=== PATIENT | female | born 1985 | race Caucasian/White ===

== ENCOUNTER → 2020-07-30 00:41 | Outpatient (CLI) | payer OTHER, SELFPAY ==
[2020-07-30 21:02] LABS: SARS-CoV-2 RNA PCR Negative
== END ==
PROVIDERS: PCP Chiropractor; Visit Provider Obstetrics & Gynecology Gynecology
DX: Z01.812 Encounter for preprocedural laboratory examination (principal); Z20.822 Contact with and (suspected) exposure to COVID-19
CPT/HCPCS: C9803; U0003; U0005

== ENCOUNTER 2020-08-02 08:50 | Inpatient (IN) | payer OTHER, SELFPAY ==
[2020-07-21 15:26] VITALS: BMI 24.3
[2020-08-02] VITALS (15 sets, daily range): BP systolic 103–120; BP diastolic 62–85; PULSE 69–97; RESP 10–20; TEMP 36.6–37.1; O2SAT 95–100
[2020-08-02] MEDS: ACETAMINOPHEN 500 MG TABLET 1000 MG PO (06:30)
[2020-08-02] MEDS: LACTATED RINGERS 1,000 ML 30 ML IV CONT ×2 (06:30→09:01)
[2020-08-02] MEDS: KETOROLAC 15 MG/ML VIAL (*BKC) IV PUSH (06:31)
--- NOTE | 2020-08-02 06:51 | WPDANESEPPF ---
Anes - Initial Pre Proc Eval Procedure: Operation Date: 08/02/20 07:30 Proposed Procedures p Total Abdominal Hysterectomy With Bilateral Salpingectomy - Annie Nelson MD Date/Time: 08/02/20 06:51 Surgeon: Annie Nelson MD Pre Op Diagnosis: fibroids uterus Patient Data Age: 34 Gender: F Height: 1.75 m Weight: 74.8 kg Allergies Allergy/AdvReac Type Severity Reaction Status Date / Time No Known Allergies Allergy Verified 08/02/20 07:00 Home Medications Medication Instructions Recorded Confirmed Type alprazolam [Xanax] 1 mg PO TID PRN 07/21/20 07/21/20 History aripiprazole [Abilify] 15 mg PO DAILY 07/21/20 07/21/20 History citalopram [Celexa] 40 mg PO DAILY 07/21/20 07/21/20 History dextroamphetamine-amphetamine 5 mg PO DAILY 07/21/20 07/21/20 History [Adderall] ibuprofen 800 mg PO TID PRN 07/21/20 07/21/20 History multivitamin 1 tablet PO DAILY 07/21/20 07/21/20 History propranolol 10 mg PO BID 07/21/20 07/21/20 History Patient hx anesthesia problems: none Family hx anesthesia problems: none PMFSH Past Medical History Medical History (Updated 08/02/20 @ 07:04 by Dani Horner DO) Anxiety Bipolar disorder Depression Migraine Tachycardia patient describes frequent tachycardia as high as 160 in the past. On propranolol now. She states she was never told it was an SVT Surgical History Surgical History (Updated 08/02/20 @ 06:53 by Dani Horner DO) History of x1 Social History Social History Years smoked: 7 Smoking status: Former smoker Smoking end date: 04/09/15 Alcohol intake: former Alcohol use details: SOBER 4 MONTHS Substance use: never Substance use type: does not use Living arrangements: with family Spiritual care concerns: No Anes - Eval Final PreProcedure Day of Procedure 08/02/20 06:51 Patient weight: normal Heart: regular rate and rhythm Lungs: clear to auscultation and normal air movement Airway: Mallampati scale class II Neurological: alert and oriented Last oral intake: >/= 8 hours ASA classification: III Emergent: no Anesthetic plan: proceed Anesthesia type and monitoring: general ETT and standard monitoring Informed Consent: The patient's anesthetic plan and its attendant risks and benefits were discussed with the patient/family/POA. Questions were solicited and answers provided to the satisfaction of the patient/family/POA.
--- NOTE | 2020-08-02 07:20 | PM.IMHP ---
H&P: HPI History of Present Illness Date/Time: 08/02/20 07:20 The patient is a 34-year-old 3 para 2 portal 1 being admitted for total abdominal hysterectomy bilateral salpingectomy secondary to enlarged uterus with fibroids. Patient has had increasing pelvic pain and pressure with feelings of a full bladder at all times. She has had increased cramping with her cycles although the flow remains normal. The pelvic ultrasound shows a 10cm uterus with a 5cm fundal fibroid as well. There are multiple small fibroids measuring approximately 2cm each. The risks of surgery including infection, bleeding, injury to internal organs (including bowel, bladder, ureters, and ovaries), deep vein thrombosis, and general anesthesia are reviewed with the patient. Questions were answered and the patient agrees to proceed. Route of delivery was reviewed and due to the large size of the fibroids the plan is to proceed with an abdominal approach. Chief Complaint: fibroid uterus Review of Systems Review of Systems: All systems reviewed & are unremarkable except as noted in HPI and below PMFSH Past Medical History Medical History (Updated 08/02/20 @ 07:25 by Annie Nelson MD) Anxiety Bipolar disorder Depression Migraine (normal spontaneous vaginal delivery) Tachycardia patient describes frequent tachycardia as high as 160 in the past. On propranolol now. She states she was never told it was an SVT Surgical History Surgical History (Updated 08/02/20 @ 07:24 by Annie Nelson MD) H/O foot surgery History of x1 Social History Social History Years smoked: 7 Smoking status: Former smoker Smoking end date: 04/09/15 Alcohol intake: former Alcohol use details: SOBER 4 MONTHS Substance use: never Substance use type: does not use Living arrangements: with family Spiritual care concerns: No Meds Home Medications and Allergies Home Medications Medication Instructions Recorded Confirmed Type alprazolam [Xanax] 1 mg PO TID PRN 07/21/20 08/02/20 History aripiprazole [Abilify] 15 mg PO DAILY 07/21/20 08/02/20 History citalopram [Celexa] 40 mg PO DAILY 07/21/20 08/02/20 History dextroamphetamine-amphetamine 5 mg PO DAILY 07/21/20 08/02/20 History [Adderall] ibuprofen 800 mg PO TID PRN 07/21/20 08/02/20 History multivitamin 1 tablet PO DAILY 07/21/20 08/02/20 History propranolol 10 mg PO BID 07/21/20 08/02/20 History Allergies Allergy/AdvReac Type Severity Reaction Status Date / Time No Known Allergies Allergy Verified 08/02/20 07:00 Vital Signs Vital Signs - 24 hr 08/02/20 06:30 Temperature 97.8 F Pulse Rate 88 Respiratory Rate 18 Blood Pressure 107/67 Pulse Oximetry 100 Exam Const: General: healthy appearing and alert Orientation/consciousness: patient oriented x3 Resp: Effort & Inspection: normal respiratory effort Auscultation: clear to auscultation bilaterally Cardio: Rate: regular rate Rhythm: regular rhythm GI: GI Palp: Yes Soft to palpation, No Tenderness to palpation present (GI) and No Palpable mass present : External Female Exam: normal external appearance Speculum Exam - Vagina: normal appearance of the vagina and normal vaginal discharge Speculum Exam - Cervix: normal appearance of the cervix Bimanual exam- vagina & uterus: consistency normal and enlarged Bimanual Exam- Adnexa, other: normal adnexae and No adnexal tenderness Neuro: General: patient oriented x3 Assessment and Plan Assessment and plan (1) Fibroids: Code(s): D21.9 - Benign neoplasm of connective and other soft tissue, unspecified Status: Acute Assessment and Plan: symptomatic fibroid uterus plan to proceed with TAI-BS
--- NOTE | 2020-08-02 07:26 | WPDHPUPDATE1 ---
History and Physical Update Update Date/Time: 08/02/20 07:26 History and Physical has been reviewed, including an updated exam of the patient. There are NO changes in the patient's condition. Risks, benefits, and alternatives have been discussed and questions answered. Patient agrees to proceed with procedure.
[2020-08-02] MEDS: ceFAZolin 2 GM/D5W 50 ML 2 GM/50 ML BAG IVPB (07:30)
--- NOTE | 2020-08-02 08:46 | PM.PROC ---
Procedure Note - Detailed Date of procedure: 08/02/20 Pre-op diagnosis: fibroids uterus Post-op diagnosis: same Procedure performed: Total abdominal hysterectomy and bilateral salpingectomy Description of procedure: The patient was taken to the operating room and placed in the dorsal supine position under general anesthesia. She was prepped and draped in the usual sterile fashion. Abdomen is palpated and the fundus is noted at approximately U -4. Pfannenstiel skin incision was made with a scalpel and carried down to the underlying layer of fascia. Fascia was nicked in the midline and extended laterally using Tam scissors. [facility] was used to tent the fascia which was then dissected off with sharp dissection due to adhesions. The rectus muscles are in the midline and the peritoneum tented. The peritoneum was entered during this process. The incision is extended with blunt traction. The bowel was packed away using moist laparotomy sponges and the retractor was placed. The flexible center blade is utilized. The tube is grasped on the cornea with large Peon and and delivered up into the incision. The round ligaments are doubly ligated transected and the anterior leaf of the broad ligament incised meeting in the midline. The tubes are grasped with a Anup on the left side the utero-ovarian ligament is isolated by creating a window in the posterior leaf of the broad ligament. The pedicle is clamped incorporating the tube in the portion being excised. The pedicle was transected and suture ligated with 0 Vicryl. Additional [id number] sutures required for hemostasis on the left ovary. The identical procedure is performed on the other side. The uterine vessels are skeletonized, clamped, transected, and suture ligated with 0 Vicryl. The cardinal and uterosacral ligaments are serially clamped, transected, and suture ligated with 0 Vicryl. The uterosacral ligaments are tagged for future use. On entering the left portion of the right uterosacral the vaginal cuff is entered. The specimen is amputated using Joce scissors. The vaginal cuff is grasped with Allis clamps. The vaginal cuff was closed using 0 Vicryl in a running locked fashion incorporating each angle to the ipsilateral uterosacral ligaments. The pelvis is irrigated and pedicles are inspected and noted to be hemostatic. The bladder flap has several raw areas that required Bovie cautery for hemostasis. The tags are cut out. The lap sponges and retractor are removed. The fascia is closed using 0 Vicryl in a running fashion. Subcutaneous tissues are irrigated and made hemostatic using Bovie cautery. Skin is closed using 4 0 Vicryl in a subcuticular fashion and Dermaflex is placed over the incision. Patient is awakened from anesthesia and taken to recovery in stable condition. Sponge, needle, and instrument counts are correct per the OR staff. Anesthesia: GETA Surgeon: Annie Nelson MD Estimated blood loss (mL): 120 Drains: Yes (naik) Packing: No Pathology: yes (uterus and tubes) Complications: No immediate complications Condition: stable Disposition: PACU Findings: Uterus is enlarged, tubes and ovaries appeared normal, bladder flap was densely adherent especially in the midline to the lower uterine segment
--- NOTE | 2020-08-02 08:54 | PM.DS ---
DS: Admitting Diagnosis Admitting Diagnosis Admitting Diagnosis: fibroid uterus DS: Discharge Diagnosis Discharge Diagnosis (1) Fibroids: Code(s): D21.9 - Benign neoplasm of connective and other soft tissue, unspecified Status: Acute (2) S/P TAI (total abdominal hysterectomy): Code(s): Z90.710 - Acquired absence of both cervix and uterus Status: Acute DS: Summary Hospital Course Hospital Course: The patient is tolerating a regular diet, voiding, and ambulating prior to discharge. Status at Discharge Functional status at discharge: independent ambulation Overall status at discharge: patient is progressing back to baseline Time Spent with Patient Time attestation: Total time spent providing and/or coordinating discharge services: DS: Data Data Completed and Pending Pending studies at discharge: Pending at discharge 08/02/20 08:39 Surgical [PTH] Routine Labs on day of discharge: Labs from last 24 hours 08/02/20 05:48 Blood Type O Positive Antibody Screen Negative Discharge Plan Discharge Attending physician on discharge: Annie Nelson Discharging Clinician: Annie Nelson Anticipated Discharge Date/Time: 08/04/20 07:43 Patient Disposition: Home, Self-Care Activity: may shower, may drive after 2 weeks and pelvic rest Diet: regular Wound Care Instructions: incision open to air Stand Alone Forms: General Discharge Instructions Follow-up/Referrals: Annie Nelson MD [Physician] - 1 Week Discharge Medications: New hydrocodone-acetaminophen 5-325 mg Tablet 1 tablet PO Q3H PRN (Reason: Pain Rated 5 Or Less) Qty: 30 RF: 0 Continued multivitamin Tablet 1 tablet PO DAILY RF: 0 citalopram [Celexa] 40 mg Tablet 40 mg PO DAILY RF: 0 ibuprofen 800 mg Tablet 800 mg PO TID PRN (Reason: Pain) RF: 0 alprazolam [Xanax] 1 mg Tablet 1 mg PO TID PRN (Reason: Anxiety) RF: 0 propranolol 10 mg Tablet 10 mg PO BID RF: 0 dextroamphetamine-amphetamine [Adderall] 5 mg Tablet 5 mg PO DAILY RF: 0 aripiprazole [Abilify] 15 mg Tablet 15 mg PO DAILY RF: 0 Date of admission: 08/02/20 10:33 Primary Care Provider: Mio,Chucho T. Admitting Provider: Annie Nelson Attending physician on admission: Annie Nelson Condition: Stable
[2020-08-02] MEDS: fentaNYL CITRATE INJ (*CRX) 100 MCG/2 ML VIAL 25 MCG IV PUSH ×7 (09:09→10:05)
[2020-08-02] MEDS: HYDROmorphone HCL INJ (*CRX) 1 MG/ML SYR 0.5 MG IV PUSH ×2 (10:11→10:24)
--- NOTE | 2020-08-02 10:38 | PC.NURSE ---
This patient, Courtney Sanchez, was received from PACU per bed to room 289. Patient/family oriented to unit policies and routines
[2020-08-02] MEDS: FENTANYL 600MCG/NS30MLPCA(*CRX 600 MCG/30 ML PCA.VIAL IV CONT (11:30)
[2020-08-02] MEDS: DEXTROSE 5%/LACTATED RINGERS 1,000 ML 125 ML IV CONT ×2 (11:37→19:32)
--- NOTE | 2020-08-02 16:20 | PC.NURSE ---
Zofran pulled from pyxis and 4mg were given at 1620. Zofran was listed as a profile med in the pyxis but was discontinued on the JUN. Zofran not able to be scanned due to this glitch.
[2020-08-02] MEDS: ALPRAZolam (*CRX) 0.5 MG TABLET 1 MG PO (18:43)
[2020-08-02] MEDS: KETOROLAC 30 MG/ML VIAL (*BKC) IV PUSH (22:06)
[2020-08-02] MEDS: PROPRANOLOL HCL 10 MG TABLET PO (22:07)
[2020-08-02] MEDS: HYDROcodone/acetaminophen (*CRX) 5-325 MG TABLET 1 TAB PO (22:08)
--- NOTE | 2020-08-02 23:10 | PC.NURSE ---
discontinued MEDICINE ASSISTANT pump at 2150. total infused:142 mcg. wasted 20cc with witness RN. patient's vitals WNL
[2020-08-03] MEDS: HYDROcodone/acetaminophen (*CRX) 5-325 MG TABLET 1 TAB PO ×8 (01:37→23:38)
[2020-08-03] MEDS: SIMETHICONE 80 MG TAB.CHEW PO ×8 (01:37→23:39)
[2020-08-03 04:13] VITALS: BP 106/64; PULSE 94; RESP 18; TEMP 36.9; O2SAT 100
[2020-08-03] MEDS: KETOROLAC 30 MG/ML VIAL (*BKC) IV PUSH (04:16)
[2020-08-03 05:31] LABS: Basophils Percent Auto 0.2 % (0.2-1.2); Eosinophils Percent Auto 0.1 % (0-4.4); Hematocrit 33.7 % (37.0-47.0); Hemoglobin 11.6 g/dL (12.0-15.0); Immature Granulocyte Absolute 0.06 K/mm3 (0.00-0.031); Immature Granulocyte Percent A 0.4 % (0-0.5); Lymphocytes Absolute Auto 1.65 K/mm3 (0.9-3.2); Lymphocytes Percent Auto 11.3 % (18.3-44.2); Mean Corpuscular HGB Conc 34.4 g/dl (32-36); Mean Corpuscular Hemoglobin 30.9 pg (26-34); Mean Corpuscular Volume 89.6 fl (80-100); Mean Platelet Volume 9.9 fl (7.4-10.4); Monocytes Absolute Auto 0.8 K/mm3 (0.1-0.6); Monocytes Percent Auto 5.6 % (2.6-8.5); Neutrophils Absolute Auto 12.1 K/mm3 (1.3-6.7); Neutrophils Percent Auto 82.4 % (45.5-73.1); Platelet Count Result 275 k/mm3 (150-375); Red Blood Count 3.76 M/mm3 (4.2-5.4); Red Cell Distribution Width 12.3 % (11.5-14.5); White Blood Count 14.6 K/mm3 (4.5-10.0)
[2020-08-03 07:15] VITALS: BP 97/58; PULSE 97; RESP 16; TEMP 36.6
--- NOTE | 2020-08-03 07:41 | PM.GYNPNOP ---
FISH STRAIGHTENER - A/P Postoperative Procedures: Procedures Operation Date: 08/02/20 07:30 Actual Procedures Side Surgeon p Total Abdominal Hysterectomy With Bilateral Salpingectomy Bilateral Annie Nelson MD Postoperative day: 1 Postoperative status: doing well Postoperative plan: routine post-op care and discharge (patient asking about possible dc today; will see how today goes) Time Spent With Patient Time: Total time spent is greater than 50% in coordination of care (as documented) at patient's floor/unit and/or counseling patient: Time with patient: less than 15 minutes FISH STRAIGHTENER- PN:Subj Post-Op Subjective Date/time seen: 08/03/20 07:41 Subjective: patient reports feeling better and pain is well controlled Exam Narrative: Exam Narrative: inc c/d/i abdomen soft, nt FISH STRAIGHTENER - PN: Obj Data Vital Signs Vital Signs: Vital Signs - 24 hr 08/02/20 09:01 08/02/20 09:15 08/02/20 09:30 Temperature 98.4 F Pulse Rate 71 69 89 Respiratory Rate 17 14 14 Blood Pressure 116/85 110/80 106/68 Pulse Oximetry 100 100 98 08/02/20 09:45 08/02/20 10:00 08/02/20 10:15 Temperature Pulse Rate 83 87 86 Respiratory Rate 10 L 12 12 Blood Pressure 107/71 108/71 105/74 Pulse Oximetry 95 98 97 08/02/20 10:30 08/02/20 10:47 08/02/20 12:17 Temperature 98.7 F 98.3 F Pulse Rate 87 97 90 Respiratory Rate 12 14 14 Blood Pressure 110/74 118/71 103/62 Pulse Oximetry 95 97 95 08/02/20 16:20 08/02/20 19:36 08/02/20 21:50 Temperature 98.4 F 98.4 F Pulse Rate 91 76 Respiratory Rate 20 18 18 Blood Pressure 119/80 120/82 Pulse Oximetry 100 100 08/02/20 22:07 08/02/20 22:41 08/03/20 04:13 Temperature 97.8 F 98.4 F Pulse Rate 90 78 94 Respiratory Rate 18 18 Blood Pressure 111/78 106/64 Pulse Oximetry 100 100 Intake/Output Intake/Output: Intake & Output 07/31/20 08/01/20 08/02/20 08/03/20 23:59 23:59 23:59 23:59 Intake Total 4251.4 1700 Output Total 3930 2950 Balance 321.4 -1250 Meds/Results Medications: Active Medications Generic Name Dose Route Start Last Admin Trade Name Freq PRN Reason Stop Dose Admin Hydrocodone Bitart/Acetaminophen 1 tab 08/02/20 10:33 08/03/20 07:14 Hydrocodone/Acetaminophen (*Crx) 5-325 Mg Tablet PO 1 tab Q3H PRN Administration Pain Rated 5 or Less Alprazolam 1 mg 08/02/20 10:33 08/02/20 18:43 Alprazolam (*Crx) 0.5 Mg Tablet PO 1 mg TID PRN Administration Anxiety Aripiprazole 15 mg 08/02/20 11:00 08/02/20 14:51 Aripiprazole 5 Mg Tablet PO Not Given DAILY ARJUN Dextrose/Lactated Ringer's 1,000 mls @ 125 mls/hr 08/02/20 10:33 08/02/20 19:32 Dextrose 5%/Lactated Ringers IV CONT 125 mls/hr .Q8H ARJUN Administration Fentanyl Citrate 600 mcg in 30 mls @ 0.5 mls/hr 08/02/20 10:45 08/02/20 21:50 Fentanyl 600 Mcg/Ns 30 Ml Jammer Operator IV CONT 10 mcg/hr .Q24H PRN 0.5 mls/hr NARROW FABRIC CALENDERER Management Titration Protocol 10 MCG/HR Ibuprofen 600 mg 08/02/20 10:33 Ibuprofen 600 Mg Tablet PO Q6H PRN Cramping Ketorolac Tromethamine 30 mg 08/02/20 10:33 08/03/20 04:16 Ketorolac 30 Mg/Ml Vial (*Bkc) IV PUSH 08/07/20 10:34 30 mg Q6H PRN Administration Pain Rated 4-6 Metoclopramide HCl 10 mg 08/02/20 10:33 Metoclopramide Hcl Inj 10 Mg/2 Ml Vial IV PUSH Q6HR PRN nausea Multivitamins Therapeutic 1 tablet 08/02/20 10:33 08/02/20 12:10 Multivitamins Therapeutic Tab (*Bkc) PO Not Given DAILY ARJUN Naloxone HCl 0.1 mg 08/02/20 10:33 Naloxone Hcl 0.4 Mg/Ml Vial IV PUSH Q2M PRN Respiratory rate less than 10 Propranolol HCl 10 mg 08/02/20 21:00 08/02/20 22:07 Propranolol Hcl 10 Mg Tablet PO 10 mg Q12HR ARJUN Administration Simethicone 80 mg 08/02/20 10:33 08/03/20 07:14 Simethicone 80 Mg Tab.Chew PO 80 mg Q2H PRN Administration Gas Labs CBC & Chem 7: 08/03/20 04:05 Labs: Laboratory Results - last 24 hr 08/02/20
--- NOTE | 2020-08-03 08:47 | P.PNAN_ITS ---
Anes - Prog Note Post-Op Date/Time: 08/03/20 08:47 Cardiovascular status: normal Respiratory status: normal Airway patency: baseline Mental status: baseline Post-Op hydration status: normal Vital Signs: Last Vital Signs Temp 36.9 C 08/03/20 04:13 Pulse 94 08/03/20 04:13 Resp 18 08/03/20 04:13 BP 106/64 08/03/20 04:13 Pulse Ox 100 08/03/20 04:13 Pain Score (VAS): 3 I/O: Intake & Output 08/02/20 08/03/20 08/03/20 23:59 07:59 15:59 Intake Total 3901.4 1700 Output Total 3800 2950 Balance 101.4 -1250 Laboratory Tests 08/03/20 04:05 08/03/20 04:05 WBC 14.6 H RBC 3.76 L Hgb 11.6 L Hct 33.7 L MCV 89.6 MCH 30.9 MCHC 34.4 RDW 12.3 Plt Count 275 MPV 9.9 Immature Gran % (Auto) 0.4 Neut % (Auto) 82.4 H Lymph % (Auto) 11.3 L [place] % (Auto) 5.6 Eos % (Auto) 0.1 Baso % (Auto) 0.2 Lymph # (Auto) 1.65 [place] # (Auto) 0.8 H Eos # (Auto) 0.0 Baso # (Auto) 0.0 Abs Immat Gran (auto) 0.06 H Absolute Neuts (auto) 12.1 H Absolute Nucleated RBC 0.0 Nucleated RBC % 0.0 Post-procedural complaints: nausea (mild, treatment effective) Patient Feedback: Patient satisfied with anesthetic care.
[2020-08-03 09:17] VITALS: PULSE 92
[2020-08-03] MEDS: ARIPiprazole 5 MG TABLET 15 MG PO (09:17)
[2020-08-03] MEDS: MULTIVITAMINS THERAPEUTIC TAB (*BKC) 1 TABLET PO (09:17)
[2020-08-03] MEDS: PROPRANOLOL HCL 10 MG TABLET PO ×2 (09:17→20:51)
[2020-08-03] MEDS: IBUPROFEN 600 MG TABLET PO ×3 (09:55→23:39)
[2020-08-03 16:00] VITALS: BP 110/64; PULSE 76; RESP 20; TEMP 36.7
[2020-08-03] MEDS: ALPRAZolam (*CRX) 0.5 MG TABLET 1 MG PO (17:30)
[2020-08-03 20:40] VITALS: BP 98/54; PULSE 101; RESP 20; TEMP 36.4; O2SAT 100
[2020-08-03 20:51] VITALS: PULSE 101
[2020-08-04] MEDS: HYDROcodone/acetaminophen (*CRX) 5-325 MG TABLET 1 TAB PO ×3 (02:40→09:01)
[2020-08-04] MEDS: SIMETHICONE 80 MG TAB.CHEW PO (06:05)
[2020-08-04] MEDS: IBUPROFEN 600 MG TABLET PO (06:06)
--- NOTE | 2020-08-04 07:29 | PM.GYNPNOP ---
TELECOMMUNICATIONS ADMINISTRATOR - A/P Postoperative Procedures: Procedures Operation Date: 08/02/20 07:30 Actual Procedure Side Surgeon p Total Abdominal Hysterectomy With Bilateral Salpingectomy Bilateral Annie Nelson MD Postoperative day: 2 Postoperative status: doing well Postoperative plan: discharge Time Spent With Patient Time: Total time spent is greater than 50% in coordination of care (as documented) at patient's floor/unit and/or counseling patient: Time with patient: less than 15 minutes TELECOMMUNICATIONS ADMINISTRATOR- PN:Subj Post-Op Subjective Date/time seen: 08/04/20 07:29 Subjective: patient has no complaints, pain is well controlled and patient is tolerating oral intake Exam Narrative: Exam Narrative: inc c/d/i TELECOMMUNICATIONS ADMINISTRATOR - PN: Obj Data Vital Signs Vital Signs: Vital Signs - 24 hr 08/03/20 09:17 08/03/20 16:00 08/03/20 20:40 Temperature 98.1 F 97.6 F Pulse Rate 92 76 101 H Respiratory Rate 20 20 Blood Pressure 110/64 98/54 L Pulse Oximetry 100 08/03/20 20:51 Temperature Pulse Rate 101 H Respiratory Rate Blood Pressure Pulse Oximetry Intake/Output Intake/Output: Intake & Output 08/01/20 08/02/20 08/03/20 08/04/20 23:59 23:59 23:59 23:59 Intake Total 4251.4 1700 Output Total 3930 3450 Balance 321.4 -1750 Meds/Results Medications: Active Medications Generic Name Dose Route Start Last Admin Trade Name Freq PRN Reason Stop Dose Admin Hydrocodone Bitart/Acetaminophen 1 tab 08/02/20 10:33 08/04/20 06:05 Hydrocodone/Acetaminophen (*Crx) 5-325 Mg Tablet PO 1 tab Q3H PRN Administration Pain Rated 5 or Less Alprazolam 1 mg 08/02/20 10:33 08/03/20 17:30 Alprazolam (*Crx) 0.5 Mg Tablet PO 1 mg TID PRN Administration Anxiety Aripiprazole 15 mg 08/02/20 11:00 08/03/20 09:17 Aripiprazole 5 Mg Tablet PO 15 mg DAILY ARJUN Administration Fentanyl Citrate 600 mcg in 30 mls @ 0.5 mls/hr 08/02/20 10:45 08/02/20 21:50 Fentanyl 600 Mcg/Ns 30 Ml Compensation Vice President IV CONT 10 mcg/hr .Q24H PRN 0.5 mls/hr COLLECTIONS REPRESENTATIVE Management Titration Protocol 10 MCG/HR Ibuprofen 600 mg 08/02/20 10:33 08/04/20 06:06 Ibuprofen 600 Mg Tablet PO 600 mg Q6H PRN Administration Cramping Ketorolac Tromethamine 30 mg 08/02/20 10:33 08/03/20 04:16 Ketorolac 30 Mg/Ml Vial (*Bkc) IV PUSH 08/07/20 10:34 30 mg Q6H PRN Administration Pain Rated 4-6 Metoclopramide HCl 10 mg 08/02/20 10:33 Metoclopramide Hcl Inj 10 Mg/2 Ml Vial IV PUSH Q6HR PRN nausea Multivitamins Therapeutic 1 tablet 08/02/20 10:33 08/03/20 09:17 Multivitamins Therapeutic Tab (*Bkc) PO 1 tablet DAILY ARJUN Administration Naloxone HCl 0.1 mg 08/02/20 10:33 Naloxone Hcl 0.4 Mg/Ml Vial IV PUSH Q2M PRN Respiratory rate less than 10 Propranolol HCl 10 mg 08/02/20 21:00 08/03/20 20:51 Propranolol Hcl 10 Mg Tablet PO 10 mg Q12HR ARJUN Administration Simethicone 80 mg 08/02/20 10:33 08/04/20 06:05 Simethicone 80 Mg Tab.Chew PO 80 mg Q2H PRN Administration Gas Labs CBC & Chem 7: 08/03/20 04:05
[2020-08-04] MEDS: MULTIVITAMINS THERAPEUTIC TAB (*BKC) 1 TABLET PO (08:15)
[2020-08-04 08:16] VITALS: PULSE 101
[2020-08-04] MEDS: ARIPiprazole 5 MG TABLET 15 MG PO (08:16)
[2020-08-04] MEDS: PROPRANOLOL HCL 10 MG TABLET PO (08:16)
[2020-08-04 08:20] VITALS: BP 114/68; PULSE 101; RESP 15; TEMP 36.7; O2SAT 99
--- NOTE | 2020-08-04 08:49 | PM.OBPNVD ---
OB - PN: Subj Subjective Date/time seen: 08/04/20 08:49 doing well no complaints OB - PN: Obj Data Labs CBC & Chem 7: 08/03/20 04:05 OB - PN A/P Assessment and Plan (1) S/P TAI (total abdominal hysterectomy): Code(s): Z90.710 - Acquired absence of both cervix and uterus Status: Acute Assessment and Plan: continue with pp care. Time Spent With Patient Time: Total time spent is greater than 50% in coordination of care (as documented) at patient's floor/unit and/or counseling patient: Exam Narrative: Exam Narrative: incision c/d/i
--- NOTE | 2020-10-08 10:51 | PM.IMHP ---
H&P: HPI History of Present Illness Date/Time: 10/08/20 10:51 Patient presents for surgery on 10/25/2020 for robotic vesicle vaginal fistula repair. Chief Complaint: Vesicovaginal fistula Review of Systems Review of Systems: All systems reviewed & are unremarkable except as noted in HPI and below PMFSH Past Medical History Medical History (Updated 10/08/20 @ 10:53 by Tony Flores MD) Anxiety Bipolar disorder Depression Migraine (normal spontaneous vaginal delivery) Tachycardia patient describes frequent tachycardia as high as 160 in the past. On propranolol now. She states she was never told it was an SVT Surgical History Surgical History (Updated 08/02/20 @ 08:55 by Annie Nelson MD) H/O foot surgery History of x1 Social History Social History Years smoked: 7 Smoking status: Former smoker Alcohol intake: former Substance use: never Substance use type: does not use Spiritual care concerns: No Meds Home Medications and Allergies Home Medications Medication Instructions Recorded Confirmed Type alprazolam [Xanax] 1 mg PO TID PRN 07/21/20 08/02/20 History aripiprazole [Abilify] 15 mg PO DAILY 07/21/20 08/02/20 History citalopram [Celexa] 40 mg PO DAILY 07/21/20 08/02/20 History dextroamphetamine-amphetamine 5 mg PO DAILY 07/21/20 08/02/20 History [Adderall] ibuprofen 800 mg PO TID PRN 07/21/20 08/02/20 History multivitamin 1 tablet PO DAILY 07/21/20 08/02/20 History propranolol 10 mg PO BID 07/21/20 08/02/20 History hydrocodone-acetaminophen 1 tablet PO Q3H PRN #30 tablet 08/03/20 Rx Allergies Allergy/AdvReac Type Severity Reaction Status Date / Time No Known Allergies Allergy Verified 08/02/20 07:00 Exam Const: General: cooperative and healthy appearing HENMT: Head: normal to inspection General nose exam: Normal external nose present Face and sinus: normal facial exam Eyes: General: appearance normal, both eyes and all related structures Neck: Neck: normal visual inspection Resp: Effort & Inspection: normal respiratory effort, able to speak in complete sentences and no cough GI: Inspection: normal to inspection Back/Spine/Pelvis: Back: no CVA tenderness Skin: General skin exam: normal color and no rashes or lesions noted Neuro: General: patient oriented x3 Extrem: General: normal to inspection and full ROM Assessment and Plan Assessment and plan (1) Vesicovaginal fistula: Code(s): N82.0 - Vesicovaginal fistula Status: Acute Assessment and Plan: plan for robotic repair. She understands the risks of bleeding, infection, damage to the surrounding organs, open conversion, persistence of fistula, recurrent fistula, other in her operative, perioperative, postoperative complications. She agrees to proceed.
== END 2020-08-04 09:13 | disposition home or self-care (01) | DRG 743 ==
LOC: ANHSURGERY 08:55 → ANHOB2 08-03 07:43
PROVIDERS: Admitting Provider Obstetrics & Gynecology Gynecology; PCP Chiropractor; Visit Provider Obstetrics & Gynecology Gynecology
PROC: 0UT94ZZ Resection of Uterus, Percutaneous Endoscopic Approach (ICD-10-PCS; principal; 2020-08-02 07:30)
DX: D25.9 Leiomyoma of uterus, unspecified (principal); N85.2 Hypertrophy of uterus; Z87.891 Personal history of nicotine dependence
CPT/HCPCS: 36415; 85025; 86850; 86900; 86901; 88307; A9270; J0690; J1100; J1170; J1885; J2250; J2370; J2405; J2704; J3010; J7120; J7121

== ENCOUNTER 2020-10-18 12:06 | Outpatient (CLI) | payer OTHER, SELFPAY ==
--- NOTE | 2020-10-18 13:06 | ECG_ITS ---
Measurements Intervals [place] Rate: 80 P: 60 IA: 153 QRS: 54 QRSD: 81 T: 14 QT: 356 QTc: 411 Interpretive Statements SINUS RHYTHM NONSPECIFIC T-WAVE ABNORMALITY- ANT/INF LEADS BASELINE ARTIFACT- I, II, III, AVL, AVF BORDERLINE ECG Electronically Signed On 10-18-2020 13:18:27 CDT by Saúl Merchant D.O.
[2020-10-18 13:32] LABS: Basophils Percent Auto 0.5 % (0.2-1.2); Eosinophils Absolute Auto 0.1 K/mm3 (0-0.3); Eosinophils Percent Auto 0.8 % (0-4.4); Hematocrit 40.8 % (37.0-47.0); Hemoglobin 13.9 g/dL (12.0-15.0); Immature Granulocyte Absolute 0.03 K/mm3 (0.00-0.031); Immature Granulocyte Percent A 0.4 % (0-0.5); Lymphocytes Absolute Auto 2.42 K/mm3 (0.9-3.2); Lymphocytes Percent Auto 31.6 % (18.3-44.2); Mean Corpuscular HGB Conc 34.1 g/dl (32-36); Mean Corpuscular Hemoglobin 30.8 pg (26-34); Mean Corpuscular Volume 90.3 fl (80-100); Mean Platelet Volume 9.1 fl (7.4-10.4); Monocytes Absolute Auto 0.6 K/mm3 (0.1-0.6); Monocytes Percent Auto 7.3 % (2.6-8.5); Neutrophils Absolute Auto 4.6 K/mm3 (1.3-6.7); Neutrophils Percent Auto 59.4 % (45.5-73.1); Platelet Count Result 358 k/mm3 (150-375); Red Blood Count 4.52 M/mm3 (4.2-5.4); Red Cell Distribution Width 11.8 % (11.5-14.5); White Blood Count 7.7 K/mm3 (4.5-10.0)
[2020-10-18 13:51] LABS: Alanine Aminotransferase 25 U/L (4-35); Albumin Level 4.6 g/dL (3.5-5.1); Alkaline Phosphatase 77 U/L (38-126); Anion Gap 9 mmol/L (8-16); Aspartate Amino Transferase 33 U/L (14-36); Bilirubin,Total 0.2 mg/dL (0.2-1.3); Blood Urea Nitrogen 11 mg/dL (7-17); Calcium 9.8 mg/dL (8.4-10.2); Carbon Dioxide 27 mmol/L (22-30); Chloride 100 mmol/L (98-107); Estimated Glomerular Filt Rate > 60; Glucose 91 mg/dL (65-105); Potassium 3.9 mmol/L (3.4-5.0); Sodium 136 mmol/L (137-145)
[2020-10-18 14:01] LABS: Partial Thromboplastin Time 26.4 SECONDS (22.3-36.8)
[2020-10-18 14:50] LABS: INR 0.9; Prothrombin Time 11.9 Seconds (11.1-14.7)
== END 2020-10-18 12:07 | disposition home or self-care (01) ==
LOC: ANHSURGERY 12:10
PROVIDERS: Visit Provider Urology
DX: N82.0 Vesicovaginal fistula (principal); Z01.818 Encounter for other preprocedural examination; I49.9 Cardiac arrhythmia, unspecified
CPT/HCPCS: 36415; 80053; 85025; 85610; 85730; 86850; 86900; 86901; 87086; 87088; 93005

== ENCOUNTER 2020-10-25 02:24 | Day surgery (SDC) | payer OTHER, SELFPAY ==
[2020-10-18 12:25] VITALS: BP 111/67; PULSE 82; RESP 16; TEMP 37; O2SAT 98; BMI 25.5
[2020-10-25] VITALS (14 sets, daily range): BP systolic 108–132; BP diastolic 64–84; PULSE 67–101; RESP 12–18; TEMP 36.1–37.2; O2SAT 95–100
[2020-10-25] MEDS: LACTATED RINGERS 1,000 ML 30 ML IV CONT ×2 (06:35→10:25)
--- NOTE | 2020-10-25 06:46 | WPDANESEPPF ---
Anes - Initial Pre Proc Eval Procedure: Operation Date: 10/25/20 07:30 Proposed Procedures p Robotic Vesicovaginal Fistula Repair with Omental Interposition Graft - Tony Flores MD Date/Time: 10/25/20 06:46 Surgeon: Tony Flores MD Pre Op Diagnosis: vesicovaginal fistula Patient Data Age: 35 Gender: F Height: 1.75 m Weight: 78.8 kg Last Vital Signs Temp 37.0 C 10/18/20 12:25 Pulse 82 10/18/20 12:25 Resp 16 10/18/20 12:25 BP 111/67 10/18/20 12:25 Pulse Ox 98 10/18/20 12:25 Allergies Allergy/AdvReac Type Severity Reaction Status Date / Time No Known Allergies Allergy Verified 10/25/20 06:39 Home Medications Medication Instructions Recorded Confirmed Type alprazolam [Xanax] 1 mg PO TID PRN 07/21/20 10/25/20 History aripiprazole [Abilify] 30 mg PO QAM 07/21/20 10/25/20 History citalopram [Celexa] 40 mg PO QAM 07/21/20 10/25/20 History dextroamphetamine-amphetamine 5 mg PO 5XW 07/21/20 10/25/20 History [Adderall] ibuprofen 800 mg PO TID PRN 07/21/20 10/25/20 History multivitamin 1 tablet PO DAILY 07/21/20 10/25/20 History metoprolol succinate 25 mg PO QAM 10/18/20 10/25/20 History Patient hx anesthesia problems: none Family hx anesthesia problems: none [facility] Past Medical History Medical History (Updated 10/08/20 @ 10:53 by Tony Flores MD) Anxiety Bipolar disorder Depression Migraine (normal spontaneous vaginal delivery) Tachycardia patient describes frequent tachycardia as high as 160 in the past. On propranolol now. She states she was never told it was an SVT Surgical History Surgical History (Updated 08/02/20 @ 08:55 by Annie Nelson MD) H/O foot surgery History of x1 Social History Social History Smoking packs per day: 1 Smoking cigarettes per day: 20.0 Years smoked: 7 Smoking pack-years: 7.00 Smoking status: Former smoker Alcohol intake: former Alcohol use details: SOBER 4 MONTHS Substance use: never Substance use type: does not use Living arrangements: with family Additional living arrangements comments: [facility] AND 2 CHILDREN Spiritual care concerns: No Anes - Eval Final PreProcedure Day of Procedure 10/25/20 06:46 Patient weight: overweight Heart: regular rate and rhythm Lungs: clear to auscultation and normal air movement Airway: Mallampati scale class II Neurological: alert and oriented Last oral intake: >/= 8 hours ASA classification: III Emergent: no Anesthetic plan: proceed Anesthesia type and monitoring: general ETT and standard monitoring Informed Consent: The patient's anesthetic plan and its attendant risks and benefits were discussed with the patient/family/POA. Questions were solicited and answers provided to the satisfaction of the patient/family/POA.
--- NOTE | 2020-10-25 07:13 | WPDHPUPDATE1 ---
History and Physical Update Update Date/Time: 10/25/20 07:13 History and Physical has been reviewed, including an updated exam of the patient. There are NO changes in the patient's condition. Risks, benefits, and alternatives have been discussed and questions answered. Patient agrees to proceed with procedure.
[2020-10-25] MEDS: ceFAZolin 2 GM/D5W 50 ML 2 GM/50 ML BAG IVPB (07:30)
--- NOTE | 2020-10-25 10:18 | W.PM.PROC2 ---
Procedure Note - Detailed Date of Procedure 10/25/20 Pre-op Diagnosis vesicovaginal fistula Post-op Diagnosis same Procedure Performed Cystoscopy with bilateral ureteral catheter placement robotic/laparoscopic lysis of adhesions for 30 minutes robotic repair of a vesicle vaginal fistula open total interposition flap repair of colonic serosal abrasions Surgeon Tony Flores MD Anesthesia general Indications this is a woman who underwent an open hysterectomy 3 months ago. She had leakage of urine per vagina. She presents with a vesicle vaginal fistula. She has no sign of ureteral injury on retrograde pyelograms. She is here today for repair of her fistula. She understands risks of bleeding, infection, recurrence, persistence, damage to surrounding organs, bowel injury, bowel obstruction, continued incontinence. Other intraoperative postoperative and perioperative complications. She agrees to proceed Findings intra-abdominal adhesions. Successful repair of vesicovaginal fistula robotically Description of Procedure she was correctly identified. Informed consent obtained. She from the operating room. She was given general anesthesia. She was prepped and draped in a sterile fashion. She was in the dorsal thigh position. Time-out performed. She was given appropriate perioperative antibiotics. I 1st performed cystoscopy. Her bladder is examined. He she had normal ureteral orifices. There seen to excrete clear yellow urine. A vesicle vaginal fistula was encountered above the right ureteral orifice it was several cm from the ureteral orifice. There is no other bladder abnormalities. I placed a open-ended angiographic catheter through the vesicle vaginal fistula to obtain through and through access from the urethra to vagina. I placed bilateral ureteral catheters. First on the right and then on the left. there is no resistance to catheter placement. An 18 Turkish Daley catheter was placed. The stents were secured to the Daley catheter. I then anesthetized the skin 3 fingerbreadths cephalad the umbilicus. I incised the skin. I dissected down to the fatty tissues. I grasped the fascia with Jenny clamps. I entered the fascia sharply in us on type technique. I placed Vicryl sutures for later fascial closure. I placed a midline trocar. I placed 2 additional trocars in the right upper quadrant and 2 additional trocars in the left upper quadrant. These were done under direct vision. She was placed in steep Trendelenburg and the robot was docked. She had omental adhesions to the anterior abdominal wall. These tract down into the pelvis. I removed these adhesions sharply from the anterior abdominal wall. This was a nice long piece of omentum which I elected to use later from my omental flap. I then examined the pelvis. She had extensive adhesions of colon into the right lower quadrant and on to the apex of the vagina and dome of the bladder. I spent 30 minutes lysing these adhesions. This was all done sharply taking great care not to injure surrounding organs. After this prolonged lysis of adhesions I was able to get the bowel out of the pelvis. I examined the bowel there appeared to be some serosal abrasions. There was no entry into the colon. I then placed an EEA Sizer in the vagina. The bladder was densely adherent onto the the vagina. I created a plane and the vesicle vaginal space for several cm. I then encountered the vesicle vaginal fistula. I could see my for angiographic catheter through the fistula. While dissecting out the fistula I opened up a 1 cm vaginotomy and a 1 cm cystostomy. I continue to make a plane between the vagina and bladder for several cm taking it down bluntly. I freed the vagina completely away from the bladder. I next closed my vaginal incision. I did so with a running 2 0 Vicryl 1st a mucosal layer. I then did a 2nd seromuscular layer. The vaginotomy was closed horizontally.
[2020-10-25] MEDS: fentaNYL CITRATE INJ (*CRX) 100 MCG/2 ML VIAL 25 MCG IV PUSH ×3 (10:57→11:44)
[2020-10-25] MEDS: KCL 20 MEQ/D5/0.45% SOD CHL 1,000 ML 100 ML IV CONT (12:50)
[2020-10-25] MEDS: KETOROLAC 30 MG/ML VIAL (*BKC) IV PUSH ×2 (12:50→20:44)
[2020-10-25] MEDS: HYDROcodone/acetaminophen (*CRX) 5-325 MG TABLET 1 TAB PO ×3 (13:59→22:09)
[2020-10-25] MEDS: ALPRAZolam (*CRX) 0.5 MG TABLET 1 MG PO (22:13)
[2020-10-26] MEDS: HYDROcodone/acetaminophen (*CRX) 5-325 MG TABLET 1 TAB PO ×2 (03:55→09:22)
[2020-10-26 04:00] VITALS: BP 103/60; PULSE 94; RESP 16; TEMP 36.6; O2SAT 99
--- NOTE | 2020-10-26 08:44 | WPDANESPN ---
Anes - Prog Note Post-Op Date/Time: 10/26/20 08:44 Cardiovascular status: normal Respiratory status: normal Airway patency: baseline Mental status: baseline Post-Op hydration status: normal Vital Signs: Last Vital Signs Temp 36.6 C 10/26/20 04:00 Pulse 94 10/26/20 04:00 Resp 16 10/26/20 04:00 BP 103/60 10/26/20 04:00 Pulse Ox 99 10/26/20 04:00 Pain Score (VAS): 04/18 I/O: Intake & Output 10/25/20 10/26/20 10/26/20 23:59 07:59 15:59 Intake Total 1000 5000 Output Total 1650 4000 Balance -650 1000 Post-procedural complaints: none Patient Feedback: Patient satisfied with anesthetic care.
[2020-10-26 08:50] VITALS: BP 109/68; PULSE 86; RESP 16; TEMP 37.4; O2SAT 99
[2020-10-26] MEDS: ARIPiprazole 10 MG TABLET 30 MG PO (09:23)
[2020-10-26] MEDS: CITALOPRAM HYDROBROMIDE 20 MG TABLET 40 MG PO (09:24)
[2020-10-26] MEDS: DOCUSATE SODIUM 100 MG CAPSULE PO (09:24)
[2020-10-26 09:25] VITALS: PULSE 80
[2020-10-26] MEDS: ENOXAPARIN 40 MG/0.4 ML SYRINGE SUB-Q (09:25)
[2020-10-26] MEDS: METOPROLOL SUCCINATE EXT REL 25 MG TABCR PO (09:25)
--- NOTE | 2020-10-26 09:32 | WPDUROPN2 ---
Progress Note: A&P Assessment and Plan (1) Vesicovaginal fistula: Code(s): N82.0 - Vesicovaginal fistula Status: Acute Assessment and Plan: Patient will go home with naik catheter, ok to attach leg bag. She will have a cystogram in 2 weeks then immediately follow up in the office afterward for her catheter removal as long as cystogram is normal. If she tolerates breakfast, she is ok to go home. (2) Post-op pain: Code(s): G89.18 - Other acute postprocedural pain Status: Acute (3) S/P TAI (total abdominal hysterectomy): Code(s): Z90.710 - Acquired absence of both cervix and uterus Status: Acute (4) Fibroids: Code(s): D21.9 - Benign neoplasm of connective and other soft tissue, unspecified Status: Acute Subjective Subjective Date/Time Seen: 10/26/20 09:32 POD #1 Cystoscopy with bilateral ureteral catheter placement robotic/laparoscopic lysis of adhesions for 30 minutes robotic repair of a vesicle vaginal fistula open total interposition flap repair of colonic serosal abrasions Patient doing well, tolerating pain with medications and ice packs, she is also tolerating her diet well and mild activity. Urine is pink and draining to gravity in her catheter bag. Review of Systems Cardiovascular: Cardiovascular: Denies chest pain Respiratory: Respiratory: Reports no additional respiratory complaints Gastrointestinal: Gastrointestinal: Reports abdominal pain, Denies nausea and Denies vomiting Genitourinary: Genitourinary: Reports hematuria and Denies flank pain Exam Resp: Effort & Inspection: normal respiratory effort Cardio: Rate: regular rate GI: GI Palp: Yes Soft to palpation and Yes Tenderness to palpation present (GI) (suprapubic area) : General: Yes no CVA tenderness Urinary Catheter: Urinary Catheter: patent and draining, urine clear and urine pink Extrem: General: edema Objective Data Vital Signs Vital Signs: Vital Signs - 24 hr 10/25/20 10:25 10/25/20 10:35 10/25/20 10:40 Temperature 97.4 F L Pulse Rate 90 81 92 Respiratory Rate 15 14 14 Blood Pressure 132/74 118/73 119/78 Pulse Oximetry 100 100 100 10/25/20 10:45 10/25/20 11:00 10/25/20 11:15 Temperature Pulse Rate 87 91 89 Respiratory Rate 12 14 15 Blood Pressure 119/78 124/84 118/79 Pulse Oximetry 100 95 95 10/25/20 11:25 10/25/20 11:35 10/25/20 11:45 Temperature Pulse Rate 96 90 96 Respiratory Rate 16 14 14 Blood Pressure 121/78 132/72 115/74 Pulse Oximetry 95 96 95 10/25/20 12:00 10/25/20 16:32 10/25/20 20:00 Temperature 99 F 97.0 F L Pulse Rate 88 88 67 Respiratory Rate 16 16 16 Blood Pressure 115/73 109/64 Pulse Oximetry 95 95 100 10/25/20 23:40 10/26/20 04:00 10/26/20 09:25 Temperature 98.6 F 97.8 F Pulse Rate 91 94 80 Respiratory Rate 16 16 Blood Pressure 118/70 103/60 Pulse Oximetry 98 99 Intake/Output Intake/Output: Intake & Output 10/23/20 10/24/20 10/25/20 10/26/20 23:59 23:59 23:59 23:59 Intake Total 1250 5000 Output Total 1710 4000 Balance -460 1000 Meds/Results Medications: Active Medications Generic Name Dose Route Start Last Admin Trade Name Freq PRN Reason Stop Dose Admin Acetaminophen 650 mg 10/25/20 11:47 Acetaminophen 325 Mg Tablet PO Q4H PRN Mild Pain (1-3) or Fever Hydrocodone Bitart/Acetaminophen 1 tab 10/25/20 11:47 10/26/20 09:22 Hydrocodone/Acetaminophen (*Crx) 5-325 Mg Tablet PO 1 tab Q4H PRN Administration Pain Rated 4-5 Alprazolam 1 mg 10/25/20 11:47 10/25/20 22:13 Alprazolam (*Crx) 0.5 Mg Tablet PO 1 mg TID PRN Administration Anxiety Aripiprazole 30 mg 10/26/20 09:00 10/26/20 09:23 Aripiprazole 10 Mg Tablet PO 30 mg QAM ARJUN Administration Cephalexin HCl 500 mg 10/26/20 13:00 Cephalexin 500 Mg Capsule PO QID ARJUN Citalopram Hydrobromide 40 mg 10/26/20 09:00 10/26/20 09:24 Citalopram Hydrobromide 20 Mg T
--- NOTE | 2020-10-26 12:04 | OBPPTRN ---
1208 Patient transferred to post room #278 via bed. Support person present. Oriented to unit, room, information board, admission packet and security measures. Patient verbalizes understanding.
--- NOTE | 2020-10-26 14:09 | PC.NURSE ---
1130 Use of naik leg bag instructed to pt. Printed instructions given too. She V/U'd.
== END 2020-10-26 11:49 | disposition home or self-care (01) ==
LOC: ANHSURGERY 10:36 → ANHOB2 11:52
PROVIDERS: Visit Provider Urology
PROC: (CPT 57425; principal; 2020-10-25 07:30)
DX: N82.0 Vesicovaginal fistula (principal); F31.9 Bipolar disorder, unspecified; F41.9 Anxiety disorder, unspecified; R00.0 Tachycardia, unspecified; Z87.891 Personal history of nicotine dependence
CPT/HCPCS: 51999; 57330; S2900; 99199; A9270; C1758; C1769; C9290; J0690; J1100; J1170; J1650; J1885; J2250; J2405; J2704; J2710; J3010; J3480; J7030; J7120

== ENCOUNTER 2020-11-09 10:37 | Outpatient (CLI) | payer OTHER, SELFPAY ==
--- NOTE | ~2020-11-09 | XR_ITS ---
EXAMINATION: XR cystogram DATE: 11/09/2020 11:22 INDICATION: Vesicovaginal fistula TECHNIQUE: Water-soluble contrast was gravity-infused through the patient's Daley catheter. Multiple fluoroscopic images were obtained. The chairman ceo image and postevacuation conventional radiographs are ob tained. Fluoroscopy exposure time was 1.0 minutes. The DAP for this procedure was 44.293 Gycm2. 12 to beti images are obtained. COMPARISON: None. FINDINGS: Aemt image is unremarkable. The bladder contour appears normal when distended with contras t. No contrast extravasation or vesicovaginal fistula are identified. IMPRESSION: 1. No vesicovaginal fistula identified. Reviewed, dictated and finalized at location A.
== END 2020-11-09 10:38 | disposition home or self-care (01) ==
PROVIDERS: Visit Provider Urology
DX: N82.0 Vesicovaginal fistula (principal)
CPT/HCPCS: 51600; 74430; Q9967